=== PATIENT | male | born 1940 | race Caucasian/White ===

== ENCOUNTER 2021-03-10 20:56 | Emergency (ER) | payer MEDICARE ==
[~2021-03-10] VITALS: Ht 172.7 cm; Wt 67.0 kg
[~2021-03-10 20:56] MED LIST: ASPI-1085 PO; CHOL100046 PO; LOSA100T57 PO; MULT-1085 PO; OMEG300C3 PO
--- NOTE | 2021-03-10 22:07 | NUR ---
Pt's face and eyes are jaundice.
--- NOTE | 2021-03-10 22:10 | NUR ---
Pt fail the PO challenge with water.
--- NOTE | 2021-03-10 22:20 | NUR ---
Pt failed the PO challenge with Coke.
[2021-03-10] MEDS ORDERED: mag hydrox/Alum hydrox/simeth 30ml oral suspension PO ONE (22:25)
[2021-03-10] MEDS ORDERED: glucagon, human recombinant 1mg kit IV ONE (22:40)
[2021-03-10] MEDS ORDERED: LORazepam 2 mg/ml vial IV ONE (22:40)
[2021-03-10] MEDS: LIDOcaine Viscous 15ml cup MM ONE ×2 (22:56→22:57)
[2021-03-10] MEDS ORDERED: ASPI-1265 PO (23:14)
[2021-03-10] MEDS ORDERED: normal saline 1000ml 1,000 ML IV SCH (23:20)
--- NOTE | 2021-03-10 23:48 | NUR ---
pt to GI lab
[2021-03-10 23:51] VITALS: BP 136/77
[2021-03-10] MEDS ORDERED: fentaNYL/PF 50MCG/1 ML 2ML syringe ONE (23:59)
[2021-03-10] MEDS ORDERED: LIDOcaine Viscous 15ml cup ONE (23:59)
[2021-03-10] MEDS ORDERED: MIDAZolam 1 MG/ML 5ML VIAL ONE (23:59)
[2021-03-11 00:31] VITALS: BP 113/69
[2021-03-11 00:41] VITALS: BP 116/73
[2021-03-11 00:51] VITALS: BP 124/76
[2021-03-11] MEDS ORDERED: LIDOcaine Viscous 15ml cup MM ONE (01:20)
--- NOTE | 2021-03-11 01:48 | NUR ---
pt passed po challenge with water after lidocaine md [facility] notified.
[2021-03-11] MEDS ORDERED: OMEP20TA5 PO ×3 (02:00→02:29)
[2021-03-11] MEDS ORDERED: pantoprazole 40mg Tablet.DR PO ONE (02:25)
[2021-03-11 02:41] VITALS: BP 135/72
== END 2021-03-11 02:45 | disposition home or self-care (01) ==
LOC: ER 20:57
DX: K20.90 Esophagitis, unspecified without bleeding (principal); R13.10 Dysphagia, unspecified; K21.9 Gastro-esophageal reflux disease without esophagitis; N20.0 Calculus of kidney; Z88.5 Allergy status to narcotic agent; Z88.6 Allergy status to analgesic agent; Z79.899 Other long term (current) drug therapy; Z20.822 Contact with and (suspected) exposure to COVID-19
CPT/HCPCS: 43235; 87635; 96361; 96374; 96375; 99285; C9803; J1610; J2060; J2250; J3010; J7030; Z7512; 99152; A4620

== ENCOUNTER 2023-07-10 17:35 | Emergency (ER) | payer MEDICARE ==
[~2023-07-10] VITALS: Ht 172.7 cm; Wt 66.1 kg
[~2023-07-10 17:35] MED LIST changes: -ASPI-1085 PO; +ASPI-1265 PO; -LOSA100T57 PO; +LOSA100T58 PO; +OMEP20TA43 PO
[2023-07-10] MEDS ORDERED: FAMO-129 PO (18:57)
[2023-07-10] MEDS ORDERED: LOSA-415 PO (18:57)
[2023-07-10] MEDS ORDERED: SYN0.088T PO (18:58)
[2023-07-10 19:17] LABS: BASOPHILS # (AUTO) 0.1 X10'3 (0-0.2); BASOPHILS % (AUTO) 0.9 % (0-1); EOSINOPHILS # (AUTO) 0.1 X10'3 (0-0.9); EOSINOPHILS % (AUTO) 2.1 % (0-6); HEMATOCRIT 46.1 % (42.0-52.0); HEMOGLOBIN 15.4 g/dl (14.0-17.9); LYMPHOCYTES # (AUTO) 0.9 X10'3 (1.1-4.8); LYMPHOCYTES % (AUTO) 14.1 % (21-51); MEAN CORPUSCULAR HEMOGLOBIN 31.6 PG (27.0-31.0); MEAN CORPUSCULAR HGB CONC 33.4 g/dL (33.0-36.5); MEAN CORPUSCULAR VOLUME 94.4 FL (78-98); MONOCYTES # (AUTO) 0.4 X10'3 (0-0.9); MONOCYTES % (AUTO) 6.4 % (2-12); NEUTROPHILS % (AUTO) 76.5 % (42-75); PLATELET COUNT 217 X10'3 (140-440); RED BLOOD COUNT 4.89 X10'6 (4.70-6.10); RED CELL DISTRIBUTION WIDTH 14.7 % (11.5-14.5); WHITE BLOOD COUNT 6.6 X10'3 (4.5-11.0)
[2023-07-10 19:36] LABS: ALBUMIN 4.2 G/DL (3.4-5.0); ANION GAP 7 (8-16); BLOOD UREA NITROGEN 26 MG/DL (7-18); BUN/CREATININE RATIO 27.1 (10.0-20.0); CALCIUM 9.3 MG/DL (8.5-10.1); CHLORIDE 108 MMOL/L (99-107); CREATININE 0.96 MG/DL (0.60-1.10); GLUCOSE 94 MG/DL (70-104); LIPASE 46 U/L (16-77); POTASSIUM 4.2 MMOL/L (3.5-5.1); SODIUM 145 MMOL/L (135-145); TOTAL CARBON DIOXIDE 29.6 MMOL/L (24-32); eCRCL 53 ML/MIN; eGFR 74 ML/MIN
[2023-07-10] MEDS: normal saline 1000ml 1,000 ML IV ONE (19:44)
[2023-07-10] MEDS ORDERED: LIDOcaine Viscous 15ml cup ONE (20:13)
[2023-07-10] MEDS ORDERED: MIDAZolam 1 MG/ML 5ML VIAL ONE (20:13)
[2023-07-10] MEDS ORDERED: fentaNYL/PF 50MCG/1 ML 2ML syringe ONE (20:13)
[2023-07-10 20:20] VITALS: BP 161/86; PULSE 77; RESP 20
[2023-07-10 20:40] VITALS: BP 127/66; PULSE 86; RESP 26; O2SAT 93
[2023-07-10 20:50] VITALS: BP 119/63; PULSE 93; RESP 25; O2SAT 94
[2023-07-10 21:00] VITALS: BP 151/72; PULSE 88; RESP 24; O2SAT 100
[2023-07-10 21:10] VITALS: BP 137/73; PULSE 86; RESP 24; O2SAT 96
[2023-07-11 00:25] VITALS: BP 129/89; PULSE 68; RESP 14; TEMP 98.2; O2SAT 96
== END 2023-07-11 00:28 | disposition home or self-care (01) ==
LOC: ER 17:35
DX: R13.10 Dysphagia, unspecified (principal); T18.128A Food in esophagus causing other injury, initial encounter; T42.71XA Poisoning by unspecified antiepileptic and sedative-hypnotic drugs, accidental (unintentional), initial encounter; K21.9 Gastro-esophageal reflux disease without esophagitis; R79.1 Abnormal coagulation profile; Z88.5 Allergy status to narcotic agent; Z79.899 Other long term (current) drug therapy; W44.F3XA Food entering into or through a natural orifice, initial encounter; Y93.89 Activity, other specified; Y92.89 Other specified places as the place of occurrence of the external cause; Y99.8 Other external cause status
CPT/HCPCS: 36415; 43247; 43249; 80048; 83690; 84484; 85025; 85610; 96360; 99152; 99291; 99292; C1726; J2250; J3010; J7030; Z7512; A4620; C1889